=== PATIENT | male | born 1965 | race Caucasian/White ===

== ENCOUNTER 2024-11-30 15:43 | Emergency (ER) | payer OTHER ==
[~2024-11-30] VITALS: Ht 190.5 cm; Wt 158.8 kg
[~2024-11-30 15:43] MED LIST: CENTRUM SILVER1 EAC2 PO; CYCL10 PO; HYDACE5 PO; IBUP800 PO; Lisinopril-Hct1 EAC4 PO; METF500 PO; OZEMPIC0.25 MG/02 SC; PRAV20 PO; TRAM50 PO
[2024-11-30 15:57] VITALS: BP 140/86
== END 2024-11-30 20:57 | disposition home or self-care (01) ==
LOC: ER 15:43
DX: M25.552 Pain in left hip (principal)
CPT/HCPCS: 72192; 73502; 99284-25